=== PATIENT | male | born 1980 | race Caucasian/White ===

== ENCOUNTER 2019-02-22 20:06 | Emergency (ER) | payer SELFPAY ==
--- NOTE | 2019-02-22 23:29 | EDM.PDOC ---
ED HPI GENERAL MEDICAL PROBLEM - General Chief Complaint: General Stated Complaint: BODY ACHES,DIZZINESS Time Seen by Provider: 02/22/19 23:15 Source of Information: Reports: Patient History Limitations: Reports: No Limitations - History of Present Illness INITIAL COMMENTS - FREE TEXT/NARRATIVE: 38-year-old male has not felt well since waking up this morning. He describes generalized body aches and a sensation of lightheadedness like he has had a couple of drinks. He missed work today. He has not been having any fever and denies any respiratory or GI symptoms. He is not having any headache. He has not taken any medications for this. He does not have a primary care provider and denies any chronic illness other than some obesity. Treatments CATERING CHEF: Reports: Other (see below) Other Treatments CATERING CHEF: unknown Generalized Pain Score (Numeric/FACES): 4 - Related Data Allergies Allergy/AdvReac Type Severity Reaction Status Date / Time Sulfa (Sulfonamide Allergy Mouth Sores Verified 02/22/19 22:16 Antibiotics) Home Meds: Home Meds NK [No Known Home Meds] 02/22/19 [History] Past Medical History - Past Health History Medical/Surgical History: Denies Medical/Surgical History - Infectious Disease History Infectious Disease History: Reports: Chicken Pox Social & Family History - Family History Family Medical History: Unobtainable - Tobacco Use Smoking Status *Q: Never Smoker Second Hand Smoke Exposure: No - Caffeine Use Caffeine Use: Reports: Coffee, Soda - Recreational Drug Use Recreational Drug Use: No ED ROS GENERAL - Review of Systems Review Of Systems: See Below Constitutional: Denies: Fever, Chills, Weakness HEENT: Denies: Ear Discharge, Ear Pain Respiratory: Reports: No Symptoms Cardiovascular: Reports: No Symptoms. Denies: Chest Pain, Palpitations GI/Abdominal: Denies: Abdominal Pain, Diarrhea, Nausea : Reports: No Symptoms Musculoskeletal: Reports: Muscle Pain, Muscle Stiffness Skin: Denies: Rash ED EXAM, GENERAL - Physical Exam Exam: See Below Exam Limited By: No Limitations General Appearance: Alert Ears: Normal TMs Nose: Normal Inspection Throat/Mouth: Normal Inspection Neck: Supple, Non-Tender Respiratory/Chest: No Respiratory Distress, Lungs Clear, Normal Breath Sounds Cardiovascular: Normal Peripheral Pulses, Regular Rate, Rhythm GI/Abdominal: Normal Bowel Sounds, Soft, Non-Tender Course - Vital Signs Last Recorded V/S: Last Vital Signs Temp 36.4 C 02/22/19 22:18 Pulse 78 02/22/19 22:18 Resp 14 02/22/19 22:18 BP 150/96 H 02/22/19 22:18 Pulse Ox 93 L 02/22/19 22:18 - Orders/Labs/Meds Labs: Laboratory Tests 02/22/19 02/22/19 02/22/19 Range/Units 23:35 23:35 23:52 WBC 6.4 (4.5-11.0) K/uL RBC 4.50 (4.30-5.90) M/uL Hgb 15.1 H (12.0-15.0) g/dL Hct 43.1 (40.0-54.0) % MCV 96 (80-98) fL MCH 34 H (27-31) pg MCHC 35 (32-36) % Plt Count 130 L (150-400) K/uL Neut % (Auto) 78 H (36-66) % Lymph % (Auto) 14 L (24-44) % Frio % (Auto) 6 (2-6) % Eos % (Auto) 2 (2-4) % Baso % (Auto) 1 (0-1) % Sodium 137 L (140-148) mmol/L Potassium 3.9 (3.6-5.2) mmol/L Chloride 103 (100-108) mmol/L Carbon Dioxide 25 (21-32) mmol/L Anion Gap 12.9 (5.0-14.0) mmol/L BUN 12 (7-18) mg/dL Creatinine 1.1 (0.8-1.3) mg/dL Est Cr Clr Drug Dosing 106.69 mL/min Estimated GFR (MDRD) > 60 (>60) Glucose 107 H (74-106) mg/dL Calcium 8.8 (8.5-10.1) mg/dL Magnesium 1.7 L (1.8-2.4) mg/dL Total Bilirubin 0.5 (0.2-1.0) mg/dL AST 24 (15-37) U/L ALT 33 (12-78) U/L Alkaline Phosphatase 79 (46-116) U/L Total Protein 7.4 (6.4-8.2) g/dL Albumin 3.7 (3.4-5.0) g/dL Globulin 3.7 H (2.3-3.5) g/dL Albumin/Globulin Ratio 1.0 L (1.2-2.2) Urine Color Yellow Urine Appearance Clear Urine pH 5.0 (4.5-8.0) Ur Specific [place] 1.020 (1.008-1.030) Urine Protein Negative (NEGATIVE) mg/dL Urine Glucose (UA) Normal (NEGATIVE) mg/dL Urine Ketones Negative (NEGATIVE) mg/dL Urine Occult Blood Trace (NEGATIVE) Urine Nitrite Negative (NEGAITVE) Urine Bilirubin Negative (NEGATIVE) Urine Urobilinogen Normal (NORMAL) mg/dL Ur Leukocyte Esterase Negative (NEGATIVE) Urine RBC 0-5 (0-5) Urine WBC 0-5 (0-5) Ur Epithelial Cells Rare Amorphous Sediment Not seen Urine Bacteria Few Urine Mucus Many Departure - Departure Time of Disposition: 00:45 Disposition: Home, Self-Care 01 Condition: Good Clinical Impression: Acute viral syndrome - Discharge Information *PRESCRIPTION DRUG MONITORING PROGRAM REVIEWED*: No *COPY OF PRESCRIPTION DRUG MONITORING REPORT IN PATIENT DEXTER: No Instructions: Viral Illness, Adult Referrals: PCP,None [Primary Care Provider] - Forms: ED Department Discharge Additional Instructions: Rest and fluids
== END 2019-02-23 00:56 | disposition home or self-care (01) ==
LOC: JP.ED 20:06
DX: B34.9 Viral infection, unspecified (principal); E66.9 Obesity, unspecified; Z88.2 Allergy status to sulfonamides
CPT/HCPCS: 36415; 80053; 81001; 83735; 85025; 99282; 99283

== ENCOUNTER 2020-08-21 02:20 | Emergency (ER) | payer OTHER, BC ==
[2020-08-21] MEDS ORDERED: Ketorolac 60 MG/2 ML SDV IM ONE (02:47)
[2020-08-21] MEDS ORDERED: Methocarbamol 500 MG Tab PO ONE (02:47)
--- NOTE | 2020-08-21 02:48 | EDM.PDOC ---
ED HPI GENERAL MEDICAL PROBLEM - General Chief Complaint: Back Pain or Injury Stated Complaint: HURT BACK Time Seen by Provider: 08/21/20 02:26 Source of Information: Reports: Patient History Limitations: Reports: No Limitations - History of Present Illness INITIAL COMMENTS - FREE TEXT/NARRATIVE: Mathew is a 40 year old male presenting to the ED for evaluation of acute upper back pain extending into the left shoulder involving the trapezius muscles, rhomboids, and pectoralis major and minor on the left. Patient was at work lifting a 80 to 90 pound totes and at 1 point was in an awkward position causing him to strain his left side. The patient continued to work and developed progressive pain prompting her to come in for evaluation. Left Back Pain Score (Numeric/FACES): 7 - Related Data Allergies Allergy/AdvReac Type Severity Reaction Status Date / Time Sulfa (Sulfonamide Allergy Mouth Sores Verified 08/21/20 02:28 Antibiotics) Home Meds: Home Meds Ketorolac [Toradol] 10 mg PO Q6H PRN 5 Days #20 tab 08/21/20 [Rx] methocarbamoL [Methocarbamol] 750 mg PO QID 7 Days #28 tablet 08/21/20 [Rx] Past Medical History - Past Health History Medical/Surgical History: Denies Medical/Surgical History - Infectious Disease History Infectious Disease History: Reports: Chicken Pox Social & Family History - Family History Family Medical History: Unobtainable - Tobacco Use Tobacco Use Status *Q: Never Tobacco User - Caffeine Use Caffeine Use: Reports: Coffee - Recreational Drug Use Recreational Drug Use: No ED ROS GENERAL - Review of Systems Review Of Systems: See Below Constitutional: Reports: No Symptoms HEENT: Reports: No Symptoms Respiratory: Reports: No Symptoms Cardiovascular: Reports: No Symptoms Musculoskeletal: Reports: Shoulder Pain, Back Pain (Left upper back from the lower thoracic extending up into the left shoulder. ), Muscle Pain, Muscle Stiffness Skin: Reports: No Symptoms Neurological: Reports: No Symptoms Psychiatric: Reports: No Symptoms Hematologic/Lymphatic: Reports: No Symptoms Immunologic: Reports: No Symptoms ED EXAM,LOWER BACK PAIN/INJURY - Physical Exam Exam: See Below Exam Limited By: No Limitations General Appearance: Alert, WD/WN, Mild Distress Neck: Normal Inspection, Supple, Non-Tender, Full Range of Motion Respiratory/Chest: No Respiratory Distress, Normal Breath Sounds, No Accessory Muscle Use, Chest Non-Tender (Male) Exam: Deferred Rectal (Males) Exam: Deferred Back Exam: Muscle Spasm (Significant tenderness to palpation over the left paraspinal thoracic back muscles extending up the trapezius muscle to the shoulder and neck. Significant muscle spasm in this distribution.), Paraspinal Tenderness. No: Vertebral Tenderness Extremities: Normal Inspection, Arm Pain (Tenderness to palpation over the trapezius muscle and pectoralis minor.), Limited Range of Motion (Limited range of motion of the left shoulder secondary to muscle spasm and pain. Patient cannot extend the arm upward beyond 5 degrees above horizontal. Negative Aleida sign. The rotator cuffs appear to be intact without loss of function.). No: Joint Swelling, Increased Warmth, Redness Neurological: Alert, Normal Mood/Affect, Normal Gait, No Motor/Sensory Deficits, Oriented x 3 Psychiatric: Normal Affect, Normal Mood Skin Exam: Warm, Dry, Intact, Normal Color, No Rash Lymphatic: No Adenopathy Course - Re-Assessments/Exams Free Text/Narrative Re-Assessment/Exam: 08/21/20 02:57 this appears to be an acute myofascial strain involving the latissimus dorsi, trapezius, rhomboids, pectoralis minor as well as the deltoid. This is likely due to repetitive motion and straining. My plan is to treat this with methocarbamol 750 mg 4 times daily and Toradol 10 mg 4 times daily as needed for pain. The patient may do activity as tolerated. We will put him on a lifting restriction for the next week to allow for recovery. Patient understands and is in agreement with this plan. Indications return to the ED were discussed. Patient is suitable for discharge in satisfactory condition all questions were answered prior to discharge. Departure - Departure Time of Disposition: 02:58 Disposition: Home, Self-Care 01 Clinical Impression: Acute thoracic myofascial strain Qualifiers: Encounter type: initial encounter Qualified Code(s): S29.019A - Strain of muscle and tendon of unspecified wall of thorax, initial encounter Strain of left trapezius muscle Qualifiers: Encounter type: initial encounter Qualified Code(s): S46.812A - Strain of other muscles, fascia and tendons at shoulder and upper arm level, left arm, initial encounter - Discharge Information *PRESCRIPTION DRUG MONITORING PROGRAM REVIEWED*: Not Applicable *COPY OF PRESCRIPTION DRUG MONITORING REPORT IN PATIENT DEXTER: Not Applicable Instructions: Thoracic Strain, [id number], Muscle Strain, [id number], Repetitive Strain Injuries Referrals: PCP,None [Primary Care Provider] - Care Plan Goals: I have prescribed Toradol 10 mg 4 times a day for pain and methocarbamol 750 mg 4 times a day for spasm. The methocarbamol should not cause sedation which should allow you to continue to work while on this medication. Ice is your friend, please use it to help reduce spasm and pain. You may alternate this with a heating pad as needed. Return to the ED should you develop any acute numbness or tingling or weakening of the muscles. I will put you on light duty for the next 5 days to allow for recovery. - Problem List & Annotations (1) Acute thoracic myofascial strain SNOMED Code(s): 62920805, 08988394 Code(s): S29.019A - STRAIN OF MUSCLE AND TENDON OF UNSP WALL OF THORAX, INIT Status: Acute Priority: Medium Current Visit: Yes Qualifiers: Encounter type: initial encounter Qualified Code(s): S29.019A - Strain of muscle and tendon of unspecified wall of thorax, initial encounter (2) Strain of left trapezius muscle SNOMED Code(s): 911590157 Code(s): S46.812A - STRAIN OF MUSC/FASC/TEND AT SHLDR/UP ARM, LEFT ARM, INIT Status: Acute Priority: Medium Current Visit: Yes Qualifiers: Encounter type: initial encounter Qualified Code(s): S46.812A - Strain of other muscles, fascia and tendons at shoulder and upper arm level, left arm, initial encounter - Problem List Review Problem List Initiated/Reviewed/Updated: Yes
== END 2020-08-21 03:20 | disposition home or self-care (01) ==
LOC: JP.ED 02:20
DX: S29.012A Strain of muscle and tendon of back wall of thorax, initial encounter (principal); S46.812A Strain of other muscles, fascia and tendons at shoulder and upper arm level, left arm, initial encounter; Z88.2 Allergy status to sulfonamides; X50.0XXA Overexertion from strenuous movement or load, initial encounter; Y92.89 Other specified places as the place of occurrence of the external cause; Y99.0 Civilian activity done for income or pay
CPT/HCPCS: 96372; 99283; A9270-GY; J1885

== ENCOUNTER 2020-12-02 18:37 | Emergency (ER) | payer BC ==
[2020-12-02] MEDS ORDERED: Sodium Chloride 0.9% 1,000 ML IV STA (19:16)
[2020-12-02] MEDS ORDERED: Sodium Chloride 0.9% 10 ML Syringe FLUSH PRN (19:16)
--- NOTE | 2020-12-02 19:19 | EDM.PDOC ---
ED HPI GENERAL MEDICAL PROBLEM - General Chief Complaint: Gastrointestinal Problem Stated Complaint: ABD PAIN Time Seen by Provider: 12/02/20 19:10 Source of Information: Reports: Patient, RN Notes Reviewed History Limitations: Reports: No Limitations - History of Present Illness INITIAL COMMENTS - FREE TEXT/NARRATIVE: 40-year-old gentleman presents emergency department a complaint of abdominal pain, he states he has had abdominal pain for the last 3 or 4 years however it has been getting worse he notices it more when he bends over and it seems to be more positional pain is predominantly in the left lower quadrant describes it as a sharp stabbing pain no nausea no vomiting no shortness of breath no change in bowel habits no fevers Left Lower Abdomen Pain Score (Numeric/FACES): 2 - Related Data Allergies Allergy/AdvReac Type Severity Reaction Status Date / Time Sulfa (Sulfonamide Allergy Mouth Sores Verified 12/02/20 18:59 Antibiotics) Home Meds: Home Meds methocarbamoL [Methocarbamol] 750 mg PO QID 7 Days #28 tablet 08/21/20 [Rx] Levothyroxine 1 tab PO DAILY 12/02/20 [History] lisinopriL [Lisinopril] 1 tab PO DAILY 12/02/20 [History] Past Medical History HEENT History: Reports: Impaired Vision Cardiovascular History: Reports: Hypertension Endocrine/Metabolic History: Reports: Hypothyroidism - Infectious Disease History Infectious Disease History: Reports: Chicken Pox Social & Family History - Family History Family Medical History: Unobtainable - Tobacco Use Tobacco Use Status *Q: Never Tobacco User - Caffeine Use Caffeine Use: Reports: Soda - Recreational Drug Use Recreational Drug Use: No ED ROS GENERAL - Review of Systems Review Of Systems: See Below Constitutional: Reports: No Symptoms HEENT: Reports: No Symptoms Respiratory: Reports: No Symptoms Cardiovascular: Reports: No Symptoms GI/Abdominal: Reports: Abdominal Pain, Flatus. Denies: Constipation, Diarrhea, Nausea, Vomiting : Reports: No Symptoms ED EXAM, GI/ABD - Physical Exam Exam: See Below Exam Limited By: No Limitations General Appearance: Alert, WD/WN, No Apparent Distress Respiratory/Chest: No Respiratory Distress, Lungs Clear, Normal Breath Sounds, No Accessory Muscle Use, Chest Non-Tender Cardiovascular: Regular Rate, Rhythm, No Murmur GI/Abdominal Exam: Normal Bowel Sounds, Soft, Tender (Left lower quadrant) Course - Vital Signs Last Recorded V/S: Last Vital Signs Temp 97.2 F 12/02/20 18:57 Pulse 92 12/02/20 18:57 Resp 16 12/02/20 18:57 BP 159/90 H 12/02/20 18:57 Pulse Ox 94 L 12/02/20 18:57 - Orders/Labs/Meds Orders: Active Orders 24 hr Category Date Time Status Peripheral IV Care [RC] . DIRECTED Care 12/02/20 19:17 Active Sodium Chloride 0.9% [Normal Saline] 100 ml Med 12/02/20 19:45 Active IV ASDIRECTED Sodium Chloride 0.9% [Saline Flush] Med 12/02/20 19:16 Active 10 ml FLUSH ASDIRECTED PRN Peripheral IV Insertion Adult [OM.PC] Urgent Oth 12/02/20 19:16 Ordered Medication Orders Sodium Chloride (Normal Saline) 100 mls @ 3 mls/sec IV ASDIRECTED IVELISSE Last Admin: 12/02/20 21:11 Dose: 3 mls/sec Documented by: FIEMSAR Sodium Chloride (Saline Flush) 10 ml FLUSH ASDIRECTED PRN PRN Reason: Keep Vein Open Labs: Laboratory Tests 12/02/20 12/02/20 12/02/20 Range/Units 19:27 19:27 19:27 WBC 8.5 (4.5-11.0) K/uL RBC 4.41 (4.30-5.90) M/uL Hgb 14.2 (12.0-15.0) g/dL Hct 43.7 (40.0-54.0) % MCV 99 H (80-98) fL MCH 32 H (27-31) pg MCHC 33 (32-36) % Plt Count 259 (150-400) K/uL Neut % (Auto) 56 (36-66) % Lymph % (Auto) 33 (24-44) % [place] % (Auto) 8 H (2-6) % Eos % (Auto) 3 (2-4) % Baso % (Auto) 1 (0-1) % Sodium 142 (140-148) mmol/L Potassium 3.7 (3.6-5.2) mmol/L Chloride 104 (100-108) mmol/L Carbon Dioxide 28 (21-32) mmol/L Anion Gap 9.8 (5.0-14.0) mmol/L BUN 22 H D (7-18) mg/dL Creatinine 1.2 (0.8-1.3) mg/dL Est Cr Clr Drug Dosing 95.84 mL/min Estimated GFR (MDRD) > 60 (>60) Glucose 113 H (74-106) mg/dL Lactic Acid 1.4 (0.4-2.0) mmol/L Calcium 9.2 (8.5-10.1) mg/dL Total Bilirubin 0.2 D (0.2-1.0) mg/dL AST 38 H (15-37) U/L ALT 52 (12-78) U/L Alkaline Phosphatase 83 (46-116) U/L Troponin I < 0.017 (0.000-0.056) ng/mL Total Protein 7.7 (6.4-8.2) g/dL Albumin 3.8 (3.4-5.0) g/dL Globulin 3.9 H (2.3-3.5) g/dL Albumin/Globulin Ratio 1.0 L (1.2-2.2) Lipase 74 (73-393) U/L Urine Color (YELLOW) Urine Appearance (CLEAR) Urine pH (5.0-8.0) Ur Specific [place] (1.008-1.030) Urine Protein (NEGATIVE) mg/dL Urine Glucose (UA) (NEGATIVE) mg/dL Urine Ketones (NEGATIVE) mg/dL Urine Occult Blood (NEGATIVE) Urine Nitrite (NEGATIVE) Urine Bilirubin (NEGATIVE) Urine Urobilinogen (0.2-1.0) EU/dL Ur Leukocyte Esterase (NEGATIVE) Urine RBC (0-5) Urine WBC (0-5) Ur Epithelial Cells Amorphous Sediment Urine Bacteria Urine Mucus 12/02/20 Range/Units 21:16 WBC (4.5-11.0) K/uL RBC (4.30-5.90) M/uL Hgb (12.0-15.0) g/dL Hct (40.0-54.0) % MCV (80-98) fL MCH (27-31) pg MCHC (32-36) % Plt Count (150-400) K/uL Neut % (Auto) (36-66) % Lymph % (Auto) (24-44) % [place] % (Auto) (2-6) % Eos % (Auto) (2-4) % Baso % (Auto) (0-1) % Sodium (140-148) mmol/L Potassium (3.6-5.2) mmol/L Chloride (100-108) mmol/L Carbon Dioxide (21-32) mmol/L Anion Gap (5.0-14.0) mmol/L BUN (7-18) mg/dL Creatinine (0.8-1.3) mg/dL Est Cr Clr Drug Dosing mL/min Estimated GFR (MDRD) (>60) Glucose (74-106) mg/dL Lactic Acid (0.4-2.0) mmol/L Calcium (8.5-10.1) mg/dL Total Bilirubin (0.2-1.0) mg/dL AST (15-37) U/L ALT (12-78) U/L Alkaline Phosphatase (46-116) U/L Troponin I (0.000-0.056) ng/mL Total Protein (6.4-8.2) g/dL Albumin (3.4-5.0) g/dL Globulin (2.3-3.5) g/dL Albumin/Globulin Ratio (1.2-2.2) Lipase (73-393) U/L Urine Color Yellow (YELLOW) Urine Appearance Clear (CLEAR) Urine pH 5.5 (5.0-8.0) Ur Specific [place] 1.020 (1.008-1.030) Urine Protein Negative (NEGATIVE) mg/dL Urine Glucose (UA) Negative (NEGATIVE) mg/dL Urine Ketones Trace H (NEGATIVE) mg/dL Urine Occult Blood Trace-intact H (NEGATIVE) Urine Nitrite Negative (NEGATIVE) Urine Bilirubin Negative (NEGATIVE) Urine Urobilinogen 0.2 (0.2-1.0) EU/dL Ur Leukocyte Esterase Negative (NEGATIVE) Urine RBC 0-5 (0-5) Urine WBC 0-5 (0-5) Ur Epithelial Cells Rare Amorphous Sediment Occasional Urine Bacteria Occasional Urine Mucus Moderate Meds: Medications Generic Name Dose Route Start Last Admin Trade Name Freq PRN Reason Stop Dose Admin Sodium Chloride 100 mls @ 3 mls/sec 12/02/20 19:45 12/02/20 21:11 Normal Saline IV 3 mls/sec ASDIRECTED IVELISSE Administration Sodium Chloride 10 ml 12/02/20 19:16 Saline Flush FLUSH ASDIRECTED PRN Keep Vein Open Discontinued Medications Generic Name Dose Route Start Last Admin Trade Name Gabinoq PRN Reason Stop Dose Admin Sodium Chloride 1,000 mls @ 500 mls/hr 12/02/20 19:16 12/02/20 19:32 Normal Saline IV 12/02/20 21:15 500 mls/hr .BOLUS STA Administration Iopamidol 100 ml 12/02/20 19:31 12/02/20 21:11 Isovue-300 (61%) IV 12/02/20 19:32 100 ml ONETIME ONE Administration Iopamidol 50 ml 12/02/20 19:58 12/02/20 21:11 Isovue-300 (61%) IV 12/02/20 19:59 50 ml ONETIME ONE Administration Sodium Chloride 10 ml 12/02/20 19:31 12/02/20 21:11 Saline Flush FLUSH 12/02/20 19:32 10 ml ONETIME ONE Administration Departure - Departure Time of Disposition: 22:04 Disposition: Home, Self-Care 01 Condition: Good Clinical Impression: Abdominal pain - Discharge Information Instructions: Abdominal Pain, Adult, [id number] Referrals: Mart Herndon RN [facility] [Primary Care Provider] - Forms: ED Department Discharge, ED Return to Work/School Form Additional Instructions: Continue with your colonoscopy follow-up with your primary care for further evaluation of the abdominal pain call or return to the emergency department worsening of symptoms Sepsis Event Note (ED) - Evaluation Sepsis Screening Result: No Definite Risk - Focused Exam Vital Signs: Vital Signs Temp Pulse Resp BP Pulse Ox 12/02/20 18:57 97.2 F 92 16 159/90 H 94 L 12/02/20 18:53 97.2 F 92 16 159/90 H 94 L - My Orders Last 24 Hours: My Active Orders 12/02/20 19:16 Sodium Chloride 0.9% [Saline Flush] 10 ml FLUSH ASDIRECTED PRN Peripheral IV Insertion Adult [OM.PC] Urgent 12/02/20 19:17 Peripheral IV Care [RC] . DIRECTED 12/02/20 19:45 Sodium Chloride 0.9% [Normal Saline] 100 ml IV ASDIRECTED - Assessment/Plan Last 24 Hours: My Active Orders 12/02/20 19:16 Sodium Chloride 0.9% [Saline Flush] 10 ml FLUSH ASDIRECTED PRN Peripheral IV Insertion Adult [OM.PC] Urgent 12/02/20 19:17 Peripheral IV Care [RC] . DIRECTED 12/02/20 19:45 Sodium Chloride 0.9% [Normal Saline] 100 ml IV ASDIRECTED Plan: Assessment Acuity = acute Site and laterality = abdominal pain Etiology = unknown Manifestations = none Location of injury = Home Lab values = CBC, CMP, troponin, urinalysis within normal limits CT scan shows no acute process Plan I did review lab work CT scan results with him he has set up for colonoscopy next month have him follow-up with his primary care for further evaluation This note was dictated using [employer] voice recognition software please call with any questions on syntax or grammar.
[2020-12-02] MEDS ORDERED: Iopamidol 612 MG/ML 500 ML Multipack Bottle IV ONE ×2 (19:31→19:58)
[2020-12-02] MEDS ORDERED: Sodium Chloride 0.9% 100 ML IV SCH (19:45)
[2020-12-02] MEDS: Sodium Chloride 0.9% 10 ML Syringe FLUSH ONE ×2 (19:58→21:11)
--- NOTE | 2020-12-02 21:57 | CRLCT ---
INDICATION: Left lower quadrant abdominal pain. TECHNIQUE: CT abdomen and pelvis acquired with i.v. 150 Isovue 300. Coronal and sagittal reformats were obtained. COMPARISON: None FINDINGS: Telegraphic Instrument Supervisor CT images: Nonobstructive bowel gas pattern. Lower chest: Unremarkable. Liver: Unremarkable. Spleen: Unremarkable. Pancreas: Unremarkable. Gallbladder and bile ducts: Unremarkable. Kidneys: Unremarkable. No kidney or ureteral stones and no hydronephrosis seen. Adrenal glands: Unremarkable. GI tract: Unremarkable. The appendix is normal in appearance and size. No acute diverticulitis involving the rectosigmoid colon. No abnormal fluid or mesenteric fat stranding. Vascular: Unremarkable. Lymph nodes: Unremarkable. Miscellaneous: Unremarkable. No pneumoperitoneum is seen. No significant ascites is noted. No ventral or inguinal hernia defects. Pelvic Organs: Unremarkable. Bones: Unremarkable for age. IMPRESSION: 1. No acute abnormality in the abdomen or pelvis. No correlate identified for patient`s clinical symptoms of left lower quadrant pain. Dictated by Mauro Farias MD @ 12/02/2020 9:55:27 PM Please note that all CT scans at this facility use dose modulation, iterative reconstruction, and/or weight-based dosing when appropriate to reduce radiation dose to as low as reasonably achievable. Dictated by: Mauro Farias MD @ 12/02/2020 21:55:33 (Electronically Signed)
== END 2020-12-02 22:13 | disposition home or self-care (01) ==
LOC: JP.ED 18:37
DX: R10.32 Left lower quadrant pain (principal); I10 Essential (primary) hypertension; E03.9 Hypothyroidism, unspecified; Z88.2 Allergy status to sulfonamides; Z79.899 Other long term (current) drug therapy
CPT/HCPCS: 36415; 74177; 80053; 81001; 83605; 83690; 84484; 85025; 99283; 99284; J7030; Q9967

== ENCOUNTER 2020-12-08 07:04 | Day surgery (SDC) | payer BC ==
[2020-12-08] MEDS ORDERED: Midazolam 1 MG/ML 2 ML SDV ONE (07:24)
[2020-12-08] MEDS ORDERED: Propofol 200 MG/20 ML SDV ONE (07:24)
[2020-12-08] MEDS ORDERED: fentaNYL 100 MCG/2 ML SDV ONE (07:24)
[2020-12-08] MEDS ORDERED: Sodium Chloride 0.9% 1,000 ML IV SCH (07:30)
--- NOTE | 2020-12-08 14:46 | OR ---
DATE OF PROCEDURE: 12/08/2020 SURGEON: Manish Kimball MD PROCEDURE: Colonoscopy. FINDINGS: Transverse colon polyp, approximately 5 mm, completely removed using cold biopsy forceps. COMPLICATIONS: None. SAP SOLUTIONS ARCHITECT: None. ANESTHETIC: MAC. PREOPERATIVE DIAGNOSIS: Family history of colorectal cancer. POSTOPERATIVE DIAGNOSIS: Family history of colorectal cancer. RISKS: Risks, benefits, alternatives, and limitations including, but not limited to infection, bleeding, and perforation along with false positives and false negatives were explained to the patient who wished to proceed. PROCEDURE IN DETAIL: The patient was placed in left lateral decubitus position. Digital rectal exam was performed without abnormality. Scope was introduced and advanced atraumatically to the ileocecal valve. Scope was brought back to the ascending, transverse, descending colon, and retroflexed. The aforementioned polyp was identified and completely removed using hot snare wire device. No colitis. No old or new blood. The prep was moderately acceptable, approximately 90% of the luminal surface could be seen. No evidence of colitis or any other abnormalities. The patient tolerated the procedure well. Manish Kimball MD /[id number]
== END 2020-12-08 10:41 | disposition home or self-care (01) ==
LOC: JP.SDS 07:04
PROVIDERS: ATTEND Surgery
DX: Z12.11 Encounter for screening for malignant neoplasm of colon (principal); K63.5 Polyp of colon; I10 Essential (primary) hypertension; E66.9 Obesity, unspecified; Z80.0 Family history of malignant neoplasm of digestive organs; Z88.2 Allergy status to sulfonamides; Z68.42 Body mass index [BMI] 45.0-49.9, adult
CPT/HCPCS: 45385; J2250; J2704; J3010; J7030

== ENCOUNTER 2021-02-01 09:40 | Inpatient (IN) | payer BC ==
--- NOTE | 2021-02-01 10:15 | EDM.PDOC ---
ED HPI GENERAL MEDICAL PROBLEM - General Chief Complaint: General Stated Complaint: COVID Time Seen by Provider: 02/01/21 09:55 Source of Information: Reports: Patient History Limitations: Reports: No Limitations - History of Present Illness INITIAL COMMENTS - FREE TEXT/NARRATIVE: 40-year-old male who has had Covid symptoms for 12 days, tested +9 days ago presents with worsening cough, shortness of breath, intermittent abdominal cramps and persistent diarrhea. He is a non-smoker, he claims he has not run a fever the entire time that he has had the infection. Cough is nonproductive but persistent. He has not had a chest x-ray or any type of medical work-up or treatment to this point. Onset: Gradual Duration: Day(s): (Symptoms for at least 12 days) Worsens with: Reports: Other (Gets very short of breath with activity) Associated Symptoms: Reports: Cough, Malaise, Shortness of Breath, Weakness, Other (Persistent diarrhea). Denies: Confusion, Chest Pain Chest Pain Score (Numeric/FACES): 7 - Related Data Allergies Allergy/AdvReac Type Severity Reaction Status Date / Time Sulfa (Sulfonamide Allergy Mouth Sores Verified 12/08/20 07:35 Antibiotics) Home Meds: Home Meds Levothyroxine 25 mcg PO DAILY 12/02/20 [History] lisinopriL [Lisinopril] 20 mg PO DAILY 12/02/20 [History] methocarbamoL [Methocarbamol] 750 mg PO QID PRN 12/08/20 [History] Past Medical History - Past Health History Medical/Surgical History: Denies Medical/Surgical History HEENT History: Reports: Impaired Vision Cardiovascular History: Reports: Hypertension Endocrine/Metabolic History: Reports: Hypothyroidism, Obesity/BMI 30+ - Infectious Disease History Infectious Disease History: Reports: Chicken Pox - Past Surgical History Endocrine Surgical History: Reports: None Social & Family History - Family History Family Medical History: Unobtainable - Tobacco Use Tobacco Use Status *Q: Never Tobacco User - Caffeine Use Caffeine Use: Reports: Coffee, Soda, Tea - Recreational Drug Use Recreational Drug Use: No ED ROS GENERAL - Review of Systems Review Of Systems: See Below Constitutional: Reports: Malaise, Decreased Appetite HEENT: Denies: Throat Pain, Vision Change Respiratory: Reports: Shortness of Breath, Cough. Denies: Sputum Cardiovascular: Denies: Chest Pain GI/Abdominal: Reports: Abdominal Pain (Recurring right lower abdominal cramps radiating up into the center of his abdomen followed by diarrhea.), Diarrhea. Denies: Hematemesis, Hematochezia, Melena : Reports: No Symptoms Musculoskeletal: Reports: Other (Generalized body aches) Neurological: Reports: Headache (Claims he gets a headache from coughing so hard), Weakness Psychiatric: Reports: No Symptoms ED EXAM, GENERAL - Physical Exam Exam: See Below Exam Limited By: No Limitations General Appearance: Alert, No Apparent Distress, Other (Patient does have mild hypoxia and feels ill but looks stable, does not look toxic) Eye Exam: Bilateral Eye: Normal Inspection Head: Atraumatic Respiratory/Chest: No Respiratory Distress, Rhonchi (Lungs are actually mostly clear, scattered rhonchi is heard bilaterally posteriorly.) Cardiovascular: Regular Rate, Rhythm. No: Tachycardia GI/Abdominal: Soft, Non-Tender, Other (Significantly obese) Extremities: No: Pedal Edema Neurological: Alert, Oriented Psychiatric: Anxious Skin Exam: Warm, Dry Course - Vital Signs Last Recorded V/S: Last Vital Signs Temp 96.5 F L 02/01/21 14:50 Pulse 89 02/01/21 14:50 Resp 18 02/01/21 14:50 BP 137/83 02/01/21 14:50 Pulse Ox 94 L 02/01/21 15:00 - Orders/Labs/Meds Orders: Active Orders 24 hr Category Date Time Status Chest 2V [CR] Routine Exams 02/01/21 10:07 Taken Precautions [COMM] Routine Oth 02/01/21 10:30 Ordered Medication Orders Acetaminophen (Acetaminophen 325 Mg Tab) 650 mg PO Q4H PRN PRN Reason: Pain (Mild 1-3)/fever Albuterol (Albuterol 8 Gm Inhaler) 0 gm INH Q2H PRN PRN Reason: Shortness of Breath Dexamethasone (Dexamethasone 2 Mg Tab) 6 mg PO DAILY [facility] Last Admin: 02/01/21 11:51 Dose: 6 mg Documented by: AKASH Enoxaparin Sodium (Enoxaparin 40 Mg/0.4 Ml Syringe) 40 mg SUBCUT DAILY [facility] Last Admin: 02/01/21 11:52 Dose: 40 mg Documented by: AKASH Guaifenesin (Guaifenesin 600 Mg Tab.Er) 600 mg PO BID [facility] Last Admin: 02/01/21 11:51 Dose: 600 mg Documented by: AKASH Hydralazine HCl (Hydralazine 20 Mg/Ml Sdv) 10 mg IVPUSH Q2H PRN PRN Reason: Hypertension Remdesivir 100 mg/ Sodium (Chloride) 100 mls @ 100 mls/hr IV Q24H [facility] Stop: 02/05/21 12:59 Levothyroxine Sodium (Levothyroxine 25 Mcg Tab) 25 mcg PO ACBREAKFAST [facility] Lisinopril (Lisinopril 20 Mg Tab) 20 mg PO DAILY [facility] Last Admin: 02/01/21 11:52 Dose: 20 mg Documented by: AKASH Loperamide HCl (Loperamide 2 Mg Cap) 2 mg PO Q4H PRN PRN Reason: Diarrhea Methocarbamol (Methocarbamol 500 Mg Tab) 750 mg PO Q6H PRN PRN Reason: Muscle Spasm Ondansetron HCl (Ondansetron 4 Mg Tab.Dis) 4 mg PO Q6H PRN PRN Reason: Nausea able to take PO Labs: Laboratory Tests 02/01/21 02/01/21 Range/Units 10:28 10:28 WBC 7.7 (4.5-11.0) K/uL RBC 4.45 (4.30-5.90) M/uL Hgb 14.3 (12.0-15.0) g/dL Hct 43.8 (40.0-54.0) % MCV 98 (80-98) fL MCH 32 H (27-31) pg MCHC 33 (32-36) % Plt Count 312 (150-400) K/uL Neut % (Auto) 71 H (36-66) % Lymph % (Auto) 22 L (24-44) % Nance % (Auto) 7 H (2-6) % Eos % (Auto) 0 L (2-4) % Baso % (Auto) 1 (0-1) % Sodium 141 (140-148) mmol/L Potassium 4.1 (3.6-5.2) mmol/L Chloride 101 (100-108) mmol/L Carbon Dioxide 28 (21-32) mmol/L Anion Gap 11.8 (5.0-14.0) mmol/L BUN 11 (7-18) mg/dL Creatinine 1.1 (0.8-1.3) mg/dL Est Cr Clr Drug Dosing 104.56 mL/min Estimated GFR (MDRD) > 60 (>60) Glucose 120 H (74-106) mg/dL Calcium 8.9 (8.5-10.1) mg/dL Total Bilirubin 0.6 D (0.2-1.0) mg/dL AST 82 H D (15-37) U/L ALT 95 H (12-78) U/L Alkaline Phosphatase 72 (46-116) U/L Total Protein 7.8 (6.4-8.2) g/dL Albumin 3.2 L (3.4-5.0) g/dL Globulin 4.6 H (2.3-3.5) g/dL Albumin/Globulin Ratio 0.7 L (1.2-2.2) Meds: Medications Generic Name Dose Route Start Last Admin Trade Name Freq PRN Reason Stop Dose Admin Acetaminophen 650 mg 02/01/21 11:08 Acetaminophen 325 Mg Tab PO Q4H PRN Pain (Mild 1-3)/fever Albuterol 0 gm 02/01/21 11:16 Albuterol 8 Gm Inhaler INH Q2H PRN Shortness of Breath Dexamethasone 6 mg 02/01/21 11:15 02/01/21 11:51 Dexamethasone 2 Mg Tab PO 6 mg DAILY [facility] Administration Enoxaparin Sodium 40 mg 02/01/21 11:15 02/01/21 11:52 Enoxaparin 40 Mg/0.4 Ml Syringe SUBCUT 40 mg DAILY [facility] Administration Guaifenesin 600 mg 02/01/21 11:30 02/01/21 11:51 Guaifenesin 600 Mg Tab.Er PO 600 mg BID [facility] Administration Hydralazine HCl 10 mg 02/01/21 11:19 Hydralazine 20 Mg/Ml Sdv IVPUSH Q2H PRN Hypertension Remdesivir 100 mg/ Sodium 100 mls @ 100 mls/hr 02/02/21 12:00 Chloride IV 02/05/21 12:59 Q24H [facility] Levothyroxine Sodium 25 mcg 02/02/21 07:30 Levothyroxine 25 Mcg Tab PO ACBREAKFAST [facility] Lisinopril 20 mg 02/01/21 11:30 02/01/21 11:52 Lisinopril 20 Mg Tab PO 20 mg DAILY [facility] Administration Loperamide HCl 2 mg 02/01/21 11:30 Loperamide 2 Mg Cap PO Q4H PRN Diarrhea Methocarbamol 750 mg 02/01/21 11:21 Methocarbamol 500 Mg Tab PO Q6H PRN Muscle Spasm Ondansetron HCl 4 mg 02/01/21 11:08 Ondansetron 4 Mg Tab.Dis PO Q6H PRN Nausea able to take PO Discontinued Medications Generic Name Dose Route Start Last Admin Trade Name Freq PRN Reason Stop Dose Admin Albuterol 2.5 mg 02/01/21 11:08 Albuterol 0.083% 2.5 Mg/3 Ml Neb Soln NEB Q4H PRN Shortness Of Breath/wheezing Remdesivir 200 mg/ Sodium 250 mls @ 250 mls/hr 02/01/21 11:30 02/01/21 11:54 Chloride IV 02/01/21 12:29 250 mls/hr ONETIME ONE Administration - Re-Assessments/Exams Free Text/Narrative Re-Assessment/Exam: 02/01/21 11:09 A 2 view chest x-ray shows scattered pulmonary infiltrates typical of Covid. CBC is normal. Discussed his case with the hospitalist service, patient will be admitted for oxygen support as well as remdesivir and dexamethasone in the short-term. He is out of the window for monoclonal antibody therapy. Departure - Departure Time of Disposition: 14:25 Disposition: Admitted As Inpatient 64 Clinical Impression: Pneumonia due to COVID-19 virus, Hypoxia - Discharge Information Sepsis Event Note (ED) - Evaluation Sepsis Screening Result: Possible Sepsis Risk - Focused Exam Vital Signs: Vital Signs Temp Pulse Resp BP Pulse Ox 02/01/21 09:48 95.6 F L 91 20 148/90 H 90 L - My Orders Last 24 Hours: My Active Orders 02/01/21 10:07 Chest 2V [CR] Routine 02/01/21 10:30 Precautions [COMM] Routine - Assessment/Plan Last 24 Hours: My Active Orders 02/01/21 10:07 Chest 2V [CR] Routine 02/01/21 10:30 Precautions [COMM] Routine
[2021-02-01] MEDS ORDERED: Ondansetron 4 MG Tab.DIS PO PRN (11:08)
[2021-02-01] MEDS ORDERED: Albuterol 0.083% 2.5 MG/3 ML Neb Soln NEB PRN (11:08)
[2021-02-01] MEDS ORDERED: Acetaminophen 325 MG Tab PO PRN (11:08)
[2021-02-01] MEDS ORDERED: hydrALAZINE 20 MG/ML SDV IVPUSH PRN (11:19)
[2021-02-01] MEDS ORDERED: Methocarbamol 500 MG Tab PO PRN (11:21)
--- NOTE | 2021-02-01 11:27 | PCM.HP.2 ---
H&P History of Present Illness - General Date of Service: 02/01/21 Admit Problem/Dx: Admission Diagnosis/Problem Admission Diagnosis/Problem COVID-19 Source of Information: Patient History Limitations: Reports: No Limitations - History of Present Illness Initial Comments - Free Text/Narative: 40-year-old male with a past medical history of mild hypothyroidism, hypertension, and obesity. He is prescribed daily Synthroid and lisinopril though he has not been taking it as of late due to feeling poorly. The patient reports symptom onset of malaise, dyspnea on exertion, cough, and diarrhea about 2 weeks ago. He reportedly tested positive for Covid about 9 days ago. His symptoms have progressed to the point where he presented to the ER for further evaluation today. He reports feeling extremely poorly and has taken some [id number] medications including Mucinex for his cough. His cough has persisted and actually worsened but has been largely nonproductive. In the ER, the patient was noted to be hypoxic with oxygen saturations in the 80s which did improve with 2 L supplemental oxygen via nasal cannula. The patient believes he got his Covid infection from his . Due to his persistent symptoms and hypoxia in the setting of COVID-19 diagnosis, admission was requested. Onset of Symptoms: Reports: Gradual Symptom Onset Date: 01/18/21 Duration of Symptoms: Reports: Week(s):, Constant, Getting Worse Location: Reports: Chest, Abdomen Quality: Reports: Ache Severity: Moderate Improves with: Reports: Rest Context: Reports: Sick Contact Associated Symptoms: Reports: Fever/Chills, Shortness of Breath. Denies: Confusion, Chest Pain, Syncope Chest Pain Score (Numeric/FACES): 7 - Related Data Allergies/Adverse Reactions: Allergies Allergy/AdvReac Type Severity Reaction Status Date / Time Sulfa (Sulfonamide Allergy Mouth Sores Verified 12/08/20 07:35 Antibiotics) Home Medications: Home Meds Levothyroxine 25 mcg PO DAILY 12/02/20 [History] lisinopriL [Lisinopril] 20 mg PO DAILY 12/02/20 [History] methocarbamoL [Methocarbamol] 750 mg PO QID PRN 12/08/20 [History] Past Medical History - Past Health History Medical/Surgical History: Denies Medical/Surgical History HEENT History: Reports: Impaired Vision Cardiovascular History: Reports: Hypertension Endocrine/Metabolic History: Reports: Hypothyroidism, Obesity/BMI 30+ - Infectious Disease History Infectious Disease History: Reports: Chicken Pox - Past Surgical History Endocrine Surgical History: Reports: None Social & Family History - Family History Family Medical History: Unobtainable - Tobacco Use Tobacco Use Status *Q: Never Tobacco User - Caffeine Use Caffeine Use: Reports: Coffee, Soda, Tea - Recreational Drug Use Recreational Drug Use: No H&P Review of Systems - Review of Systems: Review Of Systems: See Below General: Reports: Malaise, Weakness HEENT: Reports: Vertigo Pulmonary: Reports: Shortness of Breath, Cough. Denies: Hemoptysis Cardiovascular: Reports: Lightheadedness. Denies: Chest Pain, Palpitations Gastrointestinal: Reports: Diarrhea, Decreased Appetite, Stool Incontinence Genitourinary: Reports: No Symptoms Musculoskeletal: Reports: Muscle Pain Skin: Reports: No Symptoms Psychiatric: Reports: No Symptoms Neurological: Reports: No Symptoms Hematologic/Lymphatic: Reports: No Symptoms Immunologic: Reports: No Symptoms Exam - Exam Exam: See Below - Vital Signs Vital Signs: Last Vital Signs Temp 95.6 F L 02/01/21 09:48 Pulse 91 02/01/21 09:48 Resp 20 02/01/21 09:48 BP 148/90 H 02/01/21 09:48 Pulse Ox 3 L 02/01/21 11:08 Weight: 400 lb - Exam Quality Assessment: Supplemental Oxygen General: Alert, Oriented, Cooperative, Mild Distress HEENT: Hearing Intact Neck: Supple, Trachea Midline Lungs: Normal Respiratory Effort, Crackles Cardiovascular: Regular Rate, Regular Rhythm. No: Systolic Murmur GI/Abdominal Exam: Normal Bowel Sounds, Soft, No Distention Extremities: Normal Inspection Skin: Warm, Dry Neuro Extensive - Mental Status: Alert, Oriented x3 Psychiatric: Normal Affect, Normal Mood - Patient Data Lab Results Last 24 hrs: Laboratory Results - last 24 hr 02/01/21 02/01/21 Range/Units 10:28 10:28 WBC 7.7 (4.5-11.0) K/uL RBC 4.45 (4.30-5.90) M/uL Hgb 14.3 (12.0-15.0) g/dL Hct 43.8 (40.0-54.0) % MCV 98 (80-98) fL MCH 32 H (27-31) pg MCHC 33 (32-36) % Plt Count 312 (150-400) K/uL Neut % (Auto) 71 H (36-66) % Lymph % (Auto) 22 L (24-44) % Pickett % (Auto) 7 H (2-6) % Eos % (Auto) 0 L (2-4) % Baso % (Auto) 1 (0-1) % Sodium 141 (140-148) mmol/L Potassium 4.1 (3.6-5.2) mmol/L Chloride 101 (100-108) mmol/L Carbon Dioxide 28 (21-32) mmol/L Anion Gap 11.8 (5.0-14.0) mmol/L BUN 11 (7-18) mg/dL Creatinine 1.1 (0.8-1.3) mg/dL Est Cr Clr Drug Dosing 104.56 mL/min Estimated GFR (MDRD) > 60 (>60) Glucose 120 H (74-106) mg/dL Calcium 8.9 (8.5-10.1) mg/dL Total Bilirubin 0.6 D (0.2-1.0) mg/dL AST 82 H D (15-37) U/L ALT 95 H (12-78) U/L Alkaline Phosphatase 72 (46-116) U/L Total Protein 7.8 (6.4-8.2) g/dL Albumin 3.2 L (3.4-5.0) g/dL Globulin 4.6 H (2.3-3.5) g/dL Albumin/Globulin Ratio 0.7 L (1.2-2.2) Result Diagrams: 02/01/21 10:28 02/01/21 10:28 Sepsis Event Note - Evaluation Sepsis Screening Result: Possible Sepsis Risk - Focused Exam Vital Signs: Vital Signs Temp Pulse Resp BP Pulse Ox Pulse Ox 02/01/21 11:08 3 L 02/01/21 09:48 95.6 F L 91 20 148/90 H 90 L Problem List Initiated/Reviewed/Updated: Yes Orders Last 24hrs: Active Orders 24 hr Category Date Time Status Patient Status [ADT] Routine ADT 02/01/21 11:08 Active Intake and Output [RC] QSHIFT Care 02/01/21 11:10 Active Oxygen Therapy [RC] PRN Care 02/01/21 11:08 Active RT Aerosol Therapy [RC] ASDIRECTED Care 02/01/21 11:12 Active RT Post Treatment Assessment [RC] Click to Edit Care 02/01/21 11:17 Active Up to Chair [RC] QID Care 02/01/21 11:08 Active VTE/DVT Education [RC] Per Unit Routine Care 02/01/21 11:08 Active Vital Signs [RC] Q4H Care 02/01/21 11:08 Active Regular Diet [DIET] Diet 02/01/21 Lunch Active Chest 2V [CR] Routine Exams 02/01/21 10:07 Taken BILIRUBIN TOTAL [CHEM] Routine Lab 02/02/21 05:11 Ordered CBC W/O DIFF,HEMOGRAM [HEME] AM Lab 02/02/21 05:11 Ordered COMPREHENSIVE METABOLIC PN,CMP [CHEM] AM Lab 02/02/21 05:11 Ordered D Dimer [D-DIMER QUANTITATIVE] [COAG] Stat Lab 02/01/21 11:13 Ordered FERRITIN [CHEM] Stat Lab 02/01/21 11:12 Ordered LACTATE DEHYDROGENASE,LDH [CHEM] Stat Lab 02/01/21 11:13 Ordered TSH ULTRASENSITIVE [CHEM] Stat Lab 02/01/21 11:19 Ordered Acetaminophen [TylenoL] Med 02/01/21 11:08 Active 650 mg PO Q4H PRN Albuterol [Ventolin HFA] Med 02/01/21 11:16 Active 0 gm INH Q2H PRN Enoxaparin [Lovenox] Med 02/01/21 11:15 Active 40 mg SUBCUT DAILY Levothyroxine Med 02/02/21 07:30 Ordered 25 mcg PO ACBREAKFAST Ondansetron [Zofran ODT] Med 02/01/21 11:08 Active 4 mg PO Q6H PRN Remdesivir 100 mg Med 02/02/21 12:00 Ordered Sodium Chloride 0.9% [Normal Saline] 100 ml IV Q24H Remdesivir 200 mg Med 02/01/21 11:30 Active Sodium Chloride 0.9% [Normal Saline] 250 ml IV ONETIME dexAMETHasone Med 02/01/21 11:15 Active 6 mg PO DAILY hydrALAZINE [Apresoline] Med 02/01/21 11:19 Ordered 10 mg IVPUSH Q2H PRN lisinopriL [Prinivil] Med 02/01/21 11:30 Ordered 20 mg PO DAILY methocarbamoL [Robaxin] Med 02/01/21 11:21 Ordered 750 mg PO Q6H PRN Precautions [COMM] Routine Oth 02/01/21 10:30 Ordered Resuscitation Status Routine Resus Stat 02/01/21 11:08 Ordered Medication Orders Acetaminophen (Acetaminophen 325 Mg Tab) 650 mg PO Q4H PRN PRN Reason: Pain (Mild 1-3)/fever Albuterol (Albuterol 8 Gm Inhaler) 0 gm INH Q2H PRN PRN Reason: Shortness of Breath Dexamethasone (Dexamethasone 2 Mg Tab) 6 mg PO DAILY [facility] Enoxaparin Sodium (Enoxaparin 40 Mg/0.4 Ml Syringe) 40 mg SUBCUT DAILY [facility] Hydralazine HCl (Hydralazine 20 Mg/Ml Sdv) 10 mg IVPUSH Q2H PRN PRN Reason: Hypertension Remdesivir 200 mg/ Sodium (Chloride) 250 mls @ 250 mls/hr IV ONETIME ONE Stop: 02/01/21 12:29 Remdesivir 100 mg/ Sodium (Chloride) 100 mls @ 100 mls/hr IV Q24H [facility] Stop: 02/05/21 12:59 Levothyroxine Sodium (Levothyroxine 25 Mcg Tab) 25 mcg PO ACBREAKFAST [facility] Lisinopril (Lisinopril 20 Mg Tab) 20 mg PO DAILY [facility] Methocarbamol (Methocarbamol 500 Mg Tab) 750 mg PO Q6H PRN PRN Reason: Muscle Spasm Ondansetron HCl (Ondansetron 4 Mg Tab.Dis) 4 mg PO Q6H PRN PRN Reason: Nausea able to take PO Assessment/Plan Comment:: Assessment and Plan: COVID-19 HYPOXIA Patient has been feeling poorly and gradually worse over the past couple weeks. He was diagnosed with COVID-19 9 days ago but only has recently become hypoxic. With the patient's known symptoms and hypoxia, he is a candidate for treatment with remdesivir and dexamethasone. Requested remdesivir 200 mg IV x1 along with daily oral dexamethasone. No contraindication to starting remdesivir and emergency use authorization of remdesivir was discussed. Respiratory isolation precautions due to COVID-19 diagnosis. Symptomatic treatment of respiratory and GI symptoms. HYPERTENSION Patient has not taken his lisinopril of late due to feeling poorly though we will continue it here in the hospital. I also requested hydralazine if needed for significant blood pressure elevation. HYPOTHYROIDISM Requested add on TSH. In addition, will continue patient's usual daily Synthroid during his hospitalization. MUSCLE SPASMS PLANTAR FASCIITIS Treat symptoms with methocarbamol as needed at home. This was requested as needed here in the hospital. DVT PROPHYLAXIS: Requested Lovenox. CODE STATUS: Full DISPOSITION: Patient was admitted as an inpatient. Projected hospitalization is least 2 to 3 days with target disposition home. - Mortality Measure Prognosis:: Good
[2021-02-01] MEDS ORDERED: Loperamide 2 MG Cap PO PRN (11:30)
[2021-02-01] MEDS ORDERED: REMDESIVIR 200 MG in Sodium Chloride 0.9% 250 ML IV ONE (11:30)
[2021-02-01] MEDS: guaiFENesin 600 MG Tab.ER PO SCH ×2 (11:51→21:05)
[2021-02-01] MEDS: Dexamethasone 2 MG Tab PO SCH (11:51)
[2021-02-01] MEDS: Enoxaparin 40 MG/0.4 ML Syringe SUBCUT SCH (11:52)
[2021-02-01] MEDS: Lisinopril 20 MG Tab PO SCH (11:52)
[2021-02-02] MEDS: Albuterol 8 GM Inhaler INH PRN ×2 (02:50→05:00)
[2021-02-02] MEDS: Levothyroxine 25 MCG Tab PO SCH (08:10)
[2021-02-02] MEDS: Dexamethasone 2 MG Tab PO SCH (08:10)
[2021-02-02] MEDS: Enoxaparin 40 MG/0.4 ML Syringe SUBCUT SCH (08:10)
[2021-02-02] MEDS: guaiFENesin 600 MG Tab.ER PO SCH ×2 (08:10→21:07)
[2021-02-02] MEDS: Lisinopril 20 MG Tab PO SCH (08:11)
--- NOTE | 2021-02-02 10:02 | CR ---
CHEST: 2 view CLINICAL HISTORY:Dyspnea COMPARISON:None FINDINGS: There is generalized increase in lung markings bilaterally suggesting some patchy infiltrates. Heart is enlarged. Pulmonary vascularity is partially obscured by infiltrate. Pulmonary venous hypertension is not excluded. THERE ARE NO EFFUSIONS IMPRESSION: Prominent lung markings bilaterally suggest mild diffuse bilateral infiltrates. This may represent a pneumonitis. Vascularity is mildly cephalized and the heart is enlarged. CHF cannot be excluded. Clinical correlation necessary
--- NOTE | 2021-02-02 11:20 | PCM.SN.2 ---
- Free Text/Narrative Note: START OF DOCTOR OREN PROGRESS NOTE Subjective: The patient currently rates his respiratory status is a 6 out of 10. He denies fever, rigors, nausea, vomiting, wheeze, abdominal pain. He states that he has an occasional cough which is productive of white sputum. I explained to the patient his current medical condition and plan of care and I have answered all of his questions Objective: General: -Alert -No acute distress -No dyspnea -No tachypnea -Morbidly obese Heart: -Regular rate -Regular rhythm -No murmurs -No gallops -No rubs Lungs: -No wheeze -No rhonchi -Trace bilateral rales Abdomen: -Normal bowel sounds in all four quadrants -No rebound -No guarding -No tenderness Extremities: -2/4 pulse in all four extremities -No clubbing -No cyanosis -No edema Additional Details / Additional Findings / Exceptions / Miscellaneous: Pertinent Laboratory Results / Pertinent Radiology Results / Pertinent Diagnostic Results / Pertinent Vital Signs: Blood pressure 143/80, last documented pulse ox 72%, AST 65, ALT 111 Assessment / Plan: COVID-19 pneumonia. Dexamethasone 6 mg p.o. daily plus remdesivir 100 mg IV daily plus guaifenesin 600 mg p.o. twice daily plus Proventil HFA: 90 mcg/spray: 2 puffs twice daily plus incentive spirometer to be used 10 times hourly Transaminitis. Likely sequelae of COVID-19 infection. Will monitor LFTs periodically with CMP Obesity. Patient becomes regarding lifestyle modification Hypothyroidism. Synthroid 25 mcg p.o. daily Hypertension. Lisinopril 20 mg p.o. daily Muscle spasm GI prophylaxis. Protonix 40 mg p.o. daily DVT prophylaxis. Lovenox 40 mg subcutaneously daily Disposition: I will discussed the patient's case with case management/social work to determine whether we are able to set the patient up with home oxygen with the hope of discharging him either later on this day of February 02, 2021 or on February 03, 2021 END OF DOCTOR OREN PROGRESS NOTE
[2021-02-02] MEDS: Albuterol 8 GM Inhaler INH SCH ×4 (11:21→23:22)
[2021-02-02] MEDS ORDERED: REMDESIVIR 100 MG in Sodium Chloride 0.9% 100 ML IV SCH (12:00)
[2021-02-03] MEDS: Albuterol 8 GM Inhaler INH SCH ×2 (02:47→07:45)
--- NOTE | 2021-02-03 08:13 | PCM.SN.2 ---
- Free Text/Narrative Note: START OF DOCTOR EMAMIS DISCHARGE SUMMARY Date of Admission: February 01, 2021 Date of Discharge: 8:12 AM on February 03, 2021 Primary Diagnosis: COVID-19 pneumonia Secondary Diagnosis: Transaminitis, likely sequelae of COVID-19 infection Obesity Hypothyroidism Hypertension Muscle spasm Consultations: None Disposition: The patient is advised to follow-up with his primary care physician or provider as needed Discharge Medications: Robaxin 750 mg p.o. 4 times daily as needed pain/muscle spasm Synthroid 75 mcg p.o. daily Dexamethasone 6 mg p.o. daily. Quantity 7. 0 refills Lisinopril 40 mg p.o. daily Protonix 40 mg p.o. daily. Quantity 10. 0 refills. This is being prescribed for GI prophylaxis while on dexamethasone and it is not for dyspepsia/GERD END OF DOCTOR EMAMIS DISCHARGE SUMMARY
[2021-02-03] MEDS: guaiFENesin 600 MG Tab.ER PO SCH (08:54)
[2021-02-03] MEDS: Dexamethasone 2 MG Tab PO SCH (08:54)
[2021-02-03] MEDS: Levothyroxine 25 MCG Tab PO SCH (08:54)
[2021-02-03] MEDS: Enoxaparin 40 MG/0.4 ML Syringe SUBCUT SCH (08:55)
[2021-02-03] MEDS ORDERED: Lisinopril 20 MG Tab PO SCH (09:00)
[2021-02-03] MEDS ORDERED: Pantoprazole 40 MG Tab.CR PO SCH (09:00)
== END 2021-02-03 10:25 | disposition home or self-care (01) | DRG 137 ==
LOC: JP.ED 09:40 → JP.2SS 11:08
PROVIDERS: ADMIT Hospitalist; ATTEND Hospitalist
PROC: XW033E5 Introduction of Remdesivir Anti-infective into Peripheral Vein, Percutaneous Approach, New Technology Group 5 (ICD-10-PCS; principal; 2021-02-01)
DX: U07.1 COVID-19 (principal); J12.82 Pneumonia due to coronavirus disease 2019; R74.8 Abnormal levels of other serum enzymes; E66.9 Obesity, unspecified; E03.9 Hypothyroidism, unspecified; I10 Essential (primary) hypertension; M62.838 Other muscle spasm; Z79.899 Other long term (current) drug therapy; Z79.890 Hormone replacement therapy; Z88.2 Allergy status to sulfonamides; M72.2 Plantar fascial fibromatosis; Z68.43 Body mass index [BMI] 50.0-59.9, adult
CPT/HCPCS: 36415; 71046; 71046-26; 80053; 82728; 83615; 83735; 84443; 85025; 85027; 85379; 94640; 94762; 99222; 99232; 99238; 99282; 99285-25; A9270-GY; J1650; J7050; J8540

== ENCOUNTER 2024-09-05 06:11 | Day surgery (SDC) | payer BC ==
[2024-09-05 06:43] LABS: BASOPHILS ABSOLUTE AUTO 0.07 K/uL (0.00-0.10); BASOPHILS PERCENT AUTO 0.7 % (0.1-1.3); EOSINOPHILS ABSOLUTE AUTO 0.42 K/uL (0.00-0.40); EOSINOPHILS PERCENT AUTO 4.3 % (0.0-5.4); HEMATOCRIT 41.6 % (38.4-49.7); IMMATURE GRAN PERCENT AUTO 0.2 % (0.0-0.7); LYMPHOCYTES ABSOLUTE AUTO 3.15 K/uL (0.8-3.3); LYMPHOCYTES PERCENT AUTO 32.4 % (11.4-47.7); MEAN CORPUSCULAR HEMOGLOBIN 33.7 pg (31.6-35.5); MEAN CORPUSCULAR HGB CONC 33.7 g/dL (31.6-35.5); MONOCYTES ABSOLUTE AUTO 0.62 K/uL (0.20-0.90); MONOCYTES PERCENT AUTO 6.4 % (3.3-12.6); NEUTROPHILS ABSOLUTE AUTO 5.44 K/uL (1.0-7.6); PLATELET COUNT,PLT 237 K/uL (130-375); RED BLOOD CELL COUNT 4.16 M/uL (4.14-5.76); WHITE BLOOD CELL COUNT,WBC 9.7 K/uL (3.2-11.0)
[2024-09-05 06:44] LABS: IMMATURE GRAN ABSOLUTE AUTO 0.02 K/uL (0.00-0.23)
[2024-09-05] MEDS: Nozin Nasal Sanitizer NASBOTH ONE (06:45)
[2024-09-05] MEDS: Lactated Ringers 1,000 ML IV SCH (06:45)
[2024-09-05 07:04] LABS: A/G RATIO 0.9 (1.2-2.2); ALANINE AMINOTRANSFERASE,ALT 29 U/L (12-78); ALBUMIN 3.6 g/dL (3.4-5.0); ALKALINE PHOSPHATASE 83 U/L (46-116); ANION GAP 7.7 mmol/L (5.0-14.0); ASPARTATE AMNIOTRANSFERASE,AST 19 U/L (15-37); BILIRUBIN TOTAL 0.4 mg/dL (0.2-1.0); BLOOD UREA NITROGEN,BUN 11 mg/dL (7-18); CALCIUM 9.1 mg/dL (8.5-10.1); CARBON DIOXIDE,CO2 29 mmol/L (21-32); CHLORIDE,CL 105 mmol/L (100-108); CREATININE 1.2 mg/dL (0.8-1.3); EST CRCL DRUG DOSING (CG) 90.68 mL/min; ESTIMATED GFR 76 mL/min (>60); GLUCOSE RANDOM 103 mg/dL (74-106); POTASSIUM,K 4.4 mmol/L (3.6-5.2); PROTEIN TOTAL,TP 7.7 g/dL (6.4-8.2); SODIUM,NA 142 mmol/L (140-148)
[2024-09-05] MEDS ORDERED: fentaNYL 250 MCG/5 ML SDV ONE (07:13)
[2024-09-05] MEDS ORDERED: Succinylcholine 200 MG/10 ML MDV ONE (07:14)
[2024-09-05] MEDS ORDERED: Neostigmine Methylsulfate 10 MG/10 ML MDV ONE (07:14)
[2024-09-05] MEDS ORDERED: Rocuronium 50 MG/5 ML Vial ONE (07:14)
[2024-09-05] MEDS ORDERED: Propofol 200 MG/20 ML SDV ONE (07:14)
[2024-09-05] MEDS ORDERED: Ondansetron 4 MG/2 ML SDV ONE (07:14)
[2024-09-05] MEDS ORDERED: Glycopyrrolate 0.2 MG/ML 5 ML MDV ONE (07:14)
[2024-09-05] MEDS ORDERED: Dexamethasone 4 MG/ML SDV ONE (07:14)
[2024-09-05] MEDS ORDERED: ePHEDrine 50 MG/ML SDV ONE (08:07)
[2024-09-05] MEDS ORDERED: Sodium Chloride 0.9% 10 ML ONE (08:07)
[2024-09-05] MEDS: ceFAZolin 2 GM in Premix Bag 1 BAG IV ONE (09:13)
[2024-09-05] MEDS: Bupivacaine 0.25%/EPINEPHrine 1:200,000 30 ML SDV ONE (09:20)
[2024-09-05] MEDS: Bupivacaine 0.5% 30 ML SDV ONE (09:20)
[2024-09-05] MEDS ORDERED: Acetaminophen/HYDROcodone 325-5 MG Tab PO ONE (10:14)
== END 2024-09-05 10:30 | disposition home or self-care (01) ==
LOC: JP.SDS 06:11
PROVIDERS: ATTEND Specialist
DX: M70.21 Olecranon bursitis, right elbow (principal); E11.9 Type 2 diabetes mellitus without complications; I10 Essential (primary) hypertension; E66.01 Morbid (severe) obesity due to excess calories; Z88.2 Allergy status to sulfonamides
CPT/HCPCS: 01710; 24105; 36415; 80053; 82947; 85025; A9270; J0330; J0665; J0690; J1100; J1596; J2405; J2704; J2710; J3010; J3490; J7120